=== PATIENT | male | born 2005 | race American Indian/Alaskan Native ===

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

== ENCOUNTER 2024-03-17 09:03 | Outpatient (CLI) | payer OTHER, SELFPAY | END 2024-03-17 23:59 | disposition home or self-care (01) | LOC: LAB.DROPOF 03-20 09:05 | PROVIDERS: PCP Student in an Organized Health Care Education/Training Program; Visit Provider Student in an Organized Health Care Education/Training Program | DX: R51.9 Headache, unspecified (principal) | CPT/HCPCS: 87070 ==

== ENCOUNTER 2024-03-27 14:45 | Outpatient (CLI) | payer OTHER, SELFPAY | END 2024-03-27 23:59 | disposition home or self-care (01) | LOC: LAB.DROPOF 03-28 13:23 | PROVIDERS: PCP Student in an Organized Health Care Education/Training Program; Visit Provider Student in an Organized Health Care Education/Training Program | DX: J02.9 Acute pharyngitis, unspecified (principal) | CPT/HCPCS: 87070; 87077; 87186 ==

== ENCOUNTER 2024-04-14 11:17 | Outpatient (CLI) | payer OTHER, SELFPAY ==
[2024-04-14 17:44] LABS: Adenovirus,PCR Not Detected (NotDetected); Bordetella Pertussis Not Detected (NotDetected); Chlamydophila Pneumoniae, PCR Not Detected (NotDetected); Coronavirus 19, PCR Not Detected (NotDetected); Coronavirus 229E Not Detected (NotDetected); Coronavirus NL63 Not Detected (NotDetected); Coronavirus OC43 Not Detected (NotDetected); Coronovirus HKU1,PCR Not Detected (NotDetected); Human Metapneumovirus Not Detected (NotDetected); Influenza A, PCR Not Detected (NotDetected); Influenza AH1, 2009 Not Detected (NotDetected); Influenza AH1, PCR Not Detected (NotDetected); Influenza AH3,PCR Not Detected (NotDetected); Influenza B, PCR Not Detected (NotDetected); Mycoplasma Pneumoniae, PCR Not Detected (NotDetected); Parainfluenza 1, PCR Not Detected (NotDetected); Parainfluenza 2, PCR Not Detected (NotDetected); Parainfluenza 3, PCR Not Detected (NotDetected); Parainfluenza 4, PCR Not Detected (NotDetected); Respiratory Syncytial Virus Not Detected (NotDetected)
[2024-04-14 20:08] LABS: Rhinovirus/Enterovirus Detected (NotDetected)
== END 2024-04-14 23:59 | disposition home or self-care (01) ==
LOC: LAB.DROPOF 04-17 11:17
PROVIDERS: PCP Student in an Organized Health Care Education/Training Program; Visit Provider Student in an Organized Health Care Education/Training Program
DX: R09.81 Nasal congestion (principal)
CPT/HCPCS: 87070; 87265; 87486; 87581; 87632; 87635

== ENCOUNTER 2024-04-18 12:14 | Outpatient (CLI) | payer OTHER, SELFPAY ==
--- NOTE | 2024-04-18 12:26 | XR_ITS ---
PROCEDURE INFORMATION: Exam: XR Right Toe(s) Exam date and time: 04/18/2024 12:27 PM Age: 19 years old Clinical indication: Pain; Toes; Right; Additional info: Toe/foot pain TECHNIQUE: Imaging protocol: Radiologic exam of the right toes. Views: Minimum 2 views. COMPARISON: CR XR TOE RT MIN 2V 04/18/2024 12:27 PM FINDINGS: Bones/joints: No acute fracture. Soft tissues: There is no evidence for soft tissue swelling. IMPRESSION: No evidence for acute fracture.
--- NOTE | 2024-04-18 12:26 | XR_ITS ---
PROCEDURE INFORMATION: Exam: XR Right Foot; Alignment Exam date and time: 04/18/2024 12:27 PM Age: 19 years old Clinical indication: Pain; Foot; Right; Additional info: R great toe/foot pain TECHNIQUE: Imaging protocol: Radiologic exam of the right foot. Views: 1 or 2 views. COMPARISON: CR (FOOT AP, FOOT, FOOT AP) 10/27/2018 4:00 PM FINDINGS: Bones/joints: No acute fracture. No significant degenerative changes are identified. Soft tissues: There is no evidence for soft tissue swelling. IMPRESSION: Unremarkable examination.
== END 2024-04-18 23:59 | disposition home or self-care (01) ==
LOC: RAD 12:17
PROVIDERS: PCP Student in an Organized Health Care Education/Training Program; Visit Provider Student in an Organized Health Care Education/Training Program
DX: M79.674 Pain in right toe(s) (principal); M79.671 Pain in right foot
CPT/HCPCS: 73620; 73660